=== PATIENT | female | born 1965 | race Two or more races ===

== ENCOUNTER 2016-12-22 19:40 | Emergency (ER) | payer OTHER ==
[~2016-12-22] VITALS: Ht 162.6 cm; Wt 74.8 kg
[2016-12-22 20:00] VITALS: BP 150/78
--- NOTE | 2016-12-22 20:01 | Emergency Room Report ---
History of Present Illness General Chief Complaint: Lower Extremity Injury Source: Patient Present Illness HPI Patient presents with right knee and foot pain. She was running last week and developed some pain in the back of her knee. Today she's had some tingling in the bottom of her foot. She's taken some Aleve which has helped. She denies any cough, shortness of breath, hemoptysis. Pain is 8/10, aching, some radiation both towards foot and thigh. No h/o gout. The patient did have a blood clot in her left lower leg a year ago. She was not treated with anticoagulation. It sounds like that the clot was superficial. No period for 2 months. Her job requires her to stand for long periods of time. The pain worsens with this. Allergies: Coded Allergies: No Known Allergies (Unverified , 12/22/16) Patient History Past Medical History: see triage record Social History: Denies: smoking Social History Narrative - cleans houses Last Menstrual Period: NONE Reviewed Nursing Documentation: PMH: Agreed, PSxH: Agreed Review of Systems All Other Systems: negative except mentioned in HPI Physical Exam Vital Signs Date Time Temp Pulse Resp B/P (MAP) Pulse Ox O2 Delivery O2 Flow Rate FiO2 12/22/16 19:50 98.2 66 18 170/91 100 Room Air Sp02 EP Interpretation: reviewed, normal General Appearance: well appearing, no apparent distress, GCS 15 Head: normocephalic Eyes: bilateral eye normal inspection, bilateral eye PERRL ENT: moist mucus membranes Neck: supple Respiratory: lungs clear, normal breath sounds Cardiovascular #1: regular rate, rhythm Cardiovascular #2: 2+ radial (R) Gastrointestinal: normal inspection, normal bowel sounds, non tender, no mass, non-distended Musculoskeletal: gait/station normal, Jason's Sign negative, swelling, other - tenderness posterior knee, no effusions. No thigh tenderness. No drawer, lateral ligaments stable, Appley's neg Neurologic: alert, oriented x3, motor strength/tone normal, DTRs symmetric, sensory intact, cerebellar normal, speech normal Psychiatric: mood/affect normal Skin: normal inspection, warm/dry Medical Decision Making Diagnostic Impression: Primary Impression: Knee pain Qualified Codes: M25.561 - Pain in right knee Additional Impression: Osteoarthritis Qualified Codes: M17.11 - Unilateral primary osteoarthritis, right knee ER Course Patient presents with knee pain, swelling and tingling of her foot after running. Differential includes DVT, Johnston's cyst, needs sprain amongst others. The patient will be evaluated with knee x-ray and noninvasive vascular study of the right leg. The patient be treated with Motrin. Xrays with DJD. No fx or sig effusion. U/S no DVT or Johnston's cyst. Nathen applied by me. Improved. Neurovasc checked and normal. Patient declined crutches. Patient stable for outpatient observation and treatment. Other X-Ray Diagnostic Results Other X-Ray Diagnostic Results : X-Ray ordered: L knee # of Views/Limited Vs Complete: 3 View Indication: Pain EP Interpretation: Yes Interpretation: no dislocation, no soft tissue swelling, no fractures, other - DJD Impression: No acute disease Interpreting ER Provider: Electronically signed by Chucky Hdez MD CT/MRI/US Diagnostic Results CT/MRI/US Diagnostic Results : Imaging Test Ordered: US Impression no clot or Johnston's cyst Last Vital Signs Date Time Temp Pulse Resp B/P (MAP) Pulse Ox O2 Delivery O2 Flow Rate FiO2 12/22/16 22:50 98.4 71 16 137/74 100 Room Air Status: improved Disposition: HOME, SELF-CARE Condition: Improved Scripts Ibuprofen* (MOTRIN*) 600 Mg Tablet 600 MG ORAL Q6H Y for For Pain, #20 TAB Prov: Chucky Hdez M.D. 12/22/16 Chucky Hdez M.D. Dec 22, 2016 20:01
[2016-12-22] MEDS ORDERED: NKM (20:29)
[2016-12-22 22:50] VITALS: BP 137/74
[2016-12-22] MEDS ORDERED: IBUPROFEN600 MG ORAL (22:54)
--- NOTE | 2016-12-23 11:25 | Diagnostic Imaging Report ---
Indication: Pain 3 views of the right knee were obtained. Findings: No acute fracture, malalignment, or joint effusion are identified. Joint space is relatively well-maintained. Bone mineralization is within normal limits for age. Impression: Negative exam
== END 2016-12-22 23:00 | disposition home or self-care (01) ==
LOC: EMR 20:00
DX: M17.11 Unilateral primary osteoarthritis, right knee (principal)
CPT/HCPCS: 29530; 93971; 99284